=== PATIENT | female | born 1995 | race Caucasian/White ===

== ENCOUNTER 2018-03-20 21:15 | Outpatient (CLI) | END 2018-03-21 03:30 | disposition home or self-care (01) ==

== ENCOUNTER 2018-03-23 07:02 | Outpatient (CLI) | END 2018-03-23 14:34 | disposition home or self-care (01) ==

== ENCOUNTER 2018-03-25 11:20 | Outpatient (CLI) | END 2018-03-25 14:20 | disposition home or self-care (01) ==

== ENCOUNTER 2018-04-02 16:46 | Outpatient (CLI) | END 2018-04-02 21:00 | disposition home or self-care (01) ==

== ENCOUNTER 2018-04-04 10:42 | Outpatient (CLI) | END 2018-04-04 13:46 | disposition home or self-care (01) ==

== ENCOUNTER 2018-04-05 14:31 | Inpatient (IN) | END 2018-04-08 13:15 | disposition home or self-care (01) | DRG 788 ==

== ENCOUNTER 2019-03-06 02:16 | Emergency (ER) | payer MEDICAID ==
[~2019-03-06] VITALS: Ht 180.3 cm; Wt 102.2 kg
[~2019-03-06 02:16] MED LIST: CEPH-443 PO; HYDR-4011 PO; PNV1TABL12 PO
[2019-03-06 02:23] VITALS: Ht 180.3 cm; Wt 102.2 kg
[2019-03-06] MEDS ORDERED: ONDANSETRON 4 MG INJ IV STA (03:07)
[2019-03-06] MEDS ORDERED: morphine 4 MG/ML VIAL IV STA (03:07)
[2019-03-06] MEDS ORDERED: FAMOTIDINE 20 MG INJ IV ONE (03:30)
[2019-03-06] MEDS ORDERED: SOD CHLORIDE 0.9% 1,000 ML IV ONE (03:30)
[2019-03-06 05:07] VITALS: BP 98/59; PULSE 61; RESP 20
== END 2019-03-06 05:08 | disposition home or self-care (01) ==
LOC: FTE 02:16
DX: K80.20 Calculus of gallbladder without cholecystitis without obstruction (principal); N30.01 Acute cystitis with hematuria
CPT/HCPCS: 76705; 80053; 81001; 81025; 83690; 85025; 87086; 96374; 96375; J2270; J2405; J7030; Z7502; Z7610